=== PATIENT | male | born 1950 | race Caucasian/White ===

== ENCOUNTER → 2018-09-30 | Outpatient (CLI) | payer MEDICARE, OTHER ==
[2018-09-30 13:04] LABS: ALANINE AMINOTRANSFERASE 34 U/L (21-72); ALBUMIN 3.6 g/dL (3.5-5.0); ALKALINE PHOSPHATASE 68 U/L (38-126); ANION GAP 9 (5-19); ASPARTATE AMINO TRANSFERASE 32 U/L (17-59); BILIRUBIN,DIRECT 0.2 mg/dL (0.0-0.4); BILIRUBIN,TOTAL 0.3 mg/dL (0.2-1.3); BLOOD UREA NITROGEN 11 mg/dL (7-20); CALCIUM 9.1 mg/dL (8.4-10.2); CARBON DIOXIDE 29 mmol/L (22-30); CHLORIDE 97 mmol/L (98-107); CREATINE KINASE 376 U/L (55-170); GLUCOSE 117 mg/dL (75-110); POTASSIUM 5.3 mmol/L (3.6-5.0); SODIUM 135.1 mmol/L (137-145); TOTAL PROTEIN 6.1 g/dL (6.3-8.2)
[2018-09-30 13:17] LABS: FREE T3 4.22 pg/mL (2.77-5.27); FREE T4 (FREE THYROXINE) 1.47 ng/dL (0.78-2.19)
[2018-09-30 13:30] LABS: THYROID STIMULATING HORMONE 1.12 uIU/mL (0.47-4.68)
== END ==
LOC: OD 11:19
PROVIDERS: ATTEND Radiology Radiation Oncology
DX: C61 Malignant neoplasm of prostate (principal); R53.83 Other fatigue; R25.2 Cramp and spasm
CPT/HCPCS: 36415; 80053; 82550; 83036; 83735; 84439; 84443; 84481

== ENCOUNTER 2018-11-07 11:45 | Observation (INO) | payer MEDICARE, OTHER ==
[2018-11-07 12:08] LABS: ABSOLUTE LYMPHOCYTES (AUTO) 0.9 10^3/uL (0.5-4.7); ABSOLUTE MONOCYTES (AUTO) 0.3 10^3/uL (0.1-1.4); ABSOLUTE NEUT (AUTO) 2.1 10^3/uL (1.7-8.2); BASOPHILS % (AUTO) 0.3 % (0-2); EOSINOPHILS % (AUTO) 1.4 % (0-6); HEMATOCRIT 35.5 % (37.9-51.0); HEMOGLOBIN 12.7 g/dL (13.5-17.0); LYMPHOCYTES % (AUTO) 27.2 % (13-45); MEAN CORPUSCULAR HGB CONC 35.8 g/dL (32.0-36.0); MEAN CORPUSCULAR VOLUME 101 fl (80-97); MONOCYTES % (AUTO) 9.5 % (3-13); PLATELET COUNT 173 10^3/uL (150-450); RED BLOOD COUNT 3.53 10^6/uL (4.35-5.55); RED CELL DISTRIBUTION WIDTH 14.3 % (11.5-14.0); SEGMENTED NEUTROPHILS % (AUTO) 61.6 % (42-78); TOTAL CELLS COUNTED % (AUTO) 100 %; WHITE BLOOD COUNT 3.5 10^3/uL (4.0-10.5)
[2018-11-07 12:29] LABS: ALANINE AMINOTRANSFERASE 26 U/L (21-72); ALKALINE PHOSPHATASE 55 U/L (38-126); ANION GAP 8 (5-19); ASPARTATE AMINO TRANSFERASE 26 U/L (17-59); BILIRUBIN,DIRECT 0.2 mg/dL (0.0-0.4); BILIRUBIN,TOTAL 0.3 mg/dL (0.2-1.3); BLOOD UREA NITROGEN 12 mg/dL (7-20); CALCIUM 9.8 mg/dL (8.4-10.2); CARBON DIOXIDE 29 mmol/L (22-30); CHLORIDE 100 mmol/L (98-107); CREATINE KINASE 136 U/L (55-170); GLUCOSE 171 mg/dL (75-110); POTASSIUM 4.3 mmol/L (3.6-5.0); SODIUM 137.1 mmol/L (137-145); TOTAL PROTEIN 6.7 g/dL (6.3-8.2)
[2018-11-07 12:41] LABS: CREATINE KINASE MB 2.97 ng/mL (<4.55)
[2018-11-07 12:44] LABS: TROPONIN I < 0.012 ng/mL
--- NOTE | 2018-11-07 12:52 | EKG REPORT ---
SEVERITY:- BORDERLINE ECG - SINUS RHYTHM BORDERLINE T WAVE ABNORMALITIES : Confirmed by: Aleks Zavaleta MD 07-Nov-2018 12:52:03
[2018-11-07 14:43] LABS: AMORPHOUS SEDIMENT,URINE TRACE /HPF; APPEARANCE,URINE CLOUDY; BILIRUBIN,URINE NEGATIVE (NEGATIVE); COLOR,URINE YELLOW; GLUCOSE, URINE NEGATIVE (NEGATIVE); KETONES,URINE NEGATIVE (NEGATIVE); LEUKOCYTE ESTERASE,URINE NEGATIVE (NEGATIVE); NITRITE,URINE NEGATIVE (NEGATIVE); PROTEIN,URINE NEGATIVE (NEGATIVE); URINE SPECIFIC GRAVITY 1.013; UROBILINOGEN,URINE NEGATIVE mg/dL (<2.0)
--- NOTE | 2018-11-07 14:43 | ER Document Report ---
ED General - General Chief Complaint: Near Syncope Stated Complaint: SYNCOPE Time Seen by Provider: 11/07/18 13:09 Primary Care Provider: AZ HENDERSON JR, MD [Primary Care Provider] - Follow up as needed Notes: 68-year-old male with COPD and prostate cancer actively being treated with radiation presents to the emergency department for syncopal episode 2 times today. Patient states that he start started getting dizzy and it got acutely worse and started losing strength and he along to the bathroom where he sat on the toilet and then decided to have a bowel movement. He had a bowel movement and then passed out. His found him on the ground after he called her telling her what happened. Patient states he was initially short of breath as he was weak. He denies any chest pain or current shortness of breath. Complains of weakness. Denies any nausea vomiting or diarrhea, denies any back pain or joint pain. No other complaints. TRAVEL OUTSIDE OF THE [place] IN LAST 30 DAYS: No - Related Data Allergies/Adverse Reactions: alprazolam [From Xanax] Allergy (Verified 11/07/18 11:55) zolpidem tartrate [From Ambien] Allergy (Verified 11/07/18 11:55) Past Medical History - Social History Smoking Status: Current Every Day Smoker Frequency of alcohol use: None Drug Abuse: None Family History: CAD Patient has suicidal ideation: No Patient has homicidal ideation: No - Past Medical History Cardiac Medical History: Reports: Hx Hypercholesterolemia, Hx Hypertension - BORDERLINE, Hx Pulmonary Embolism Pulmonary Medical History: Reports: Hx Bronchitis, Hx COPD Neurological Medical History: Reports: Hx Seizures Endocrine Medical History: Reports: Hx Diabetes Mellitus Type 1, Hx Diabetes Mellitus Type 2 Renal/ Medical History: Denies: Hx Peritoneal Dialysis Past Surgical History: Reports: Hx Appendectomy, Hx Orthopedic Surgery - right leg - Immunizations Hx Diphtheria, Pertussis, Tetanus Vaccination: Yes Hx Pneumococcal Vaccination: 02/25/10 Review of Systems - Review of Systems Constitutional: See HPI EENT: No symptoms reported Cardiovascular: See HPI Respiratory: See HPI Gastrointestinal: See HPI Genitourinary: No symptoms reported Male Genitourinary: No symptoms reported Musculoskeletal: No symptoms reported Skin: No symptoms reported Hematologic/Lymphatic: No symptoms reported Neurological/Psychological: See HPI Physical Exam - Vital signs Vitals: Resp Pulse Ox 11 L 100 11/07/18 11:56 11/07/18 11:56 - Notes Notes: PHYSICAL EXAMINATION: Reviewed vital signs and charting by RN GENERAL: Alert, interacts well. No acute distress. Appears pekid HEAD: Normocephalic, atraumatic. EYES: Pupils equal and round. Extraocular movements intact. ENT: Oral mucosa moist, tongue midline. NECK: Full range of motion. Trachea midline. LUNGS: Clear to auscultation bilaterally, no wheezes, rales, or rhonchi. No respiratory distress. HEART: Regular rate and rhythm. No murmur ABDOMEN: soft, non-tender. No distention. Bowel sounds present EXTREMITIES: Moves all 4 extremities spontaneously. No edema, No cyanosis. NEURO: A &O X 3, normal speech, normal gailt, PERRL, EOMI, SILT, follows commands in all 4 extremities, no gross abnormalities of cranial nerves, no focal neuro deficits, reports analysis manager strength 5/5 bilateral, 5/5 strength in both proximal and distal upper and lower extremities PSYCH: Normal affect, normal mood. SKIN: Warm, dry, pallor. No rashes or lesions noted. Course - Re-evaluation Re-evalutation: 11/07/18 14:45 Overall peaked appearing he is a patient of Dr. Walter at [facility]. I cannot exclude a PE with his initial lab work all being within normal limits and Wells score for PE is 4.5. CTA ordered 11/07/18 15:46 11/07/18 16:08 Orthostatics were negative upon arrival to the ER. I talked to Dr. Turner, hospitalist who accepted the patient for full admission to the [facility]. - Vital Signs Vital signs: Temp Pulse Resp BP Pulse Ox 97.6 F 66 13 129/67 H 99 11/07/18 13:00 11/07/18 12:11 11/07/18 15:00 11/07/18 14:01 11/07/18 15:00 - Laboratory Result Diagrams: 11/07/18 11:50 11/07/18 11:50 Laboratory results interpreted by me: 11/07/18 11/07/18 11:50 11:50 WBC 3.5 L RBC 3.53 L Hgb 12.7 L Hct 35.5 L MCV 101 H MCH 36.0 H RDW 14.3 H Glucose 171 H Discharge - Discharge Clinical Impression: Syncope Qualifiers: Syncope type: unspecified Qualified Code(s): R55 - Syncope and collapse Condition: Stable Disposition: ADMITTED INPATIENT Admitting Provider: Johnny (Hospitalist) Unit Admitted: IMCU Referrals: AZ HENDERSON JR, MD [Primary Care Provider] - Follow up as needed
[2018-11-07] MEDS ORDERED: IPRATROPIUM/ALBUTEROL 0.5-2.5 MG/3 ML AMPUL NEB PRN (16:46)
[2018-11-07] MEDS ORDERED: ONDANSETRON HCL INJ/PF 4 MG/2 ML SDV IV PRN (16:46)
[2018-11-07] MEDS ORDERED: PROMETHAZINE HCL INJ 25 MG/1 ML VIAL IV PRN (16:46)
[2018-11-07] MEDS ORDERED: ACETAMINOPHEN 325 MG TABLET PO PRN (16:46)
--- NOTE | 2018-11-07 17:22 | PDOC H&P ---
History of Present Illness Admission Date/PCP: 11/07/18 16:13 AZ HENDERSON JR, MD History of Present Illness: SANJAY TRUJILLO is a 68 year old male past medical history of prostate CA curr ently on XRT cycle 37, history of PE followed by DVT (on Coumadin transitioned to Xarelto respectively), hypertension, diabetes, history of skin cancer, presenting to ED after an episode of syncope. Patient is stating today at 11 AM he was walking to the restroom, felt lightheaded, mild shortness of breath, started losing his strength, he sat on tje toilet, and passed out. Was found on the floor by the who is at the bedside and states that he did not sustain any trauma due to syncope, did not witness any convulsions, and was not postictal. Patient denies any prior history of syncope, any CAD, arrhythmia. He has been keeping himself well-hydrated and denies any nausea, vomiting, diarrhea or any external fluid losses. In ED orthostasis was negative, HBG 12.7, CBC within normal limits, troponins less than 0.012, CK 136, UA negative. CTA and CT head pending at the time of admission. He denies any fever, shortness of breath, chest pain, palpitation, nausea, vomiting, diarrhea, constipation, sick contacts, recent travel, recent immobilization, recent hospitalization, recent long travel. Note: Patient medication needs to be reconciled however the initial list which was reconsult by pharmacy appeared to be incorrect as per patient. At the time of dictation metric is pending. Past Medical History Cardiac Medical History: Reports: Hyperlipidema, Hypertension - BORDERLINE, Pulmonary Embolism Pulmonary Medical History: Reports: Bronchitis, Chronic Obstructive Pulmonary Disease (COPD) Neurological Medical History: Reports: Seizures Endocrine Medical History: Reports: Diabetes Mellitus Type 1, Diabetes Mellitus Type 2 Past Surgical History Past Surgical History: Reports: Appendectomy, Orthopedic Surgery - right leg Social History Smoking Status: Current Every Day Smoker Family History Family History: CAD Parental Family History Reviewed: Yes Children Family History Reviewed: Yes Sibling(s) Family History Reviewed.: Yes Medication/Allergy Allergies/Adverse Reactions: alprazolam [From Xanax] Allergy (Verified 11/07/18 11:55) zolpidem tartrate [From Ambien] Allergy (Verified 11/07/18 11:55) Review of Systems Review of Systems: as hpi Physical Exam Vital Signs: Temp Pulse Resp BP Pulse Ox 97.6 F 66 12 119/63 100 11/07/18 13:00 11/07/18 12:11 11/07/18 17:01 11/07/18 17:01 11/07/18 17:01 Intake & Output 11/06/18 11/07/18 11/08/18 06:59 06:59 06:59 Output Total 300 Balance -300 Weight 83.915 kg General appearance: PRESENT: no acute distress, well-developed, well-nourished Head exam: PRESENT: atraumatic, normocephalic Eye exam: PRESENT: conjunctiva pink, EOMI, PERRLA. ABSENT: scleral icterus Ear exam: PRESENT: normal external ear exam Mouth exam: PRESENT: moist, tongue midline Neck exam: ABSENT: carotid bruit, JVD, lymphadenopathy, thyromegaly Respiratory exam: PRESENT: clear to auscultation pamela. ABSENT: rales, rhonchi, wheezes Cardiovascular exam: PRESENT: RRR. ABSENT: diastolic murmur, rubs, systolic murmur Pulses: PRESENT: normal dorsalis pedis pul Vascular exam: PRESENT: normal capillary refill GI/Abdominal exam: PRESENT: normal bowel sounds, soft. ABSENT: distended, guarding, mass, organolmegaly, rebound, tenderness Rectal exam: PRESENT: deferred Extremities exam: PRESENT: full ROM. ABSENT: calf tenderness, clubbing, pedal edema Neurological exam: PRESENT: alert, awake, oriented to person, oriented to place, oriented to time, oriented to situation, CN II-XII grossly intact. ABSENT: motor sensory deficit Psychiatric exam: PRESENT: appropriate affect, normal mood. ABSENT: homicidal ideation, suicidal ideation Skin exam: PRESENT: dry, intact, warm. ABSENT: cyanosis, rash Results Laboratory Results: 11/07/18 11:50 11/07/18 11:50 11/07/18 11/07/18 11/07/18 11:50 11:50 14:05 WBC 3.5 L RBC 3.53 L Hgb 12.7 L Hct 35.5 L MCV 101 H MCH 36.0 H MCHC 35.8 RDW 14.3 H Plt Count 173 Seg Neutrophils % 61.6 Lymphocytes % 27.2 Monocytes % 9.5 Eosinophils % 1.4 Basophils % 0.3 Absolute Neutrophils 2.1 Absolute Lymphocytes 0.9 Absolute Monocytes 0.3 Absolute Eosinophils 0.0 Absolute Basophils 0.0 Sodium 137.1 Potassium 4.3 Chloride 100 Carbon Dioxide 29 Anion Gap 8 BUN 12 Creatinine 0.89 Est GFR ( Amer) > 60 Est GFR (Non-Af Amer) > 60 Glucose 171 H Calcium 9.8 Total Bilirubin 0.3 AST 26 ALT 26 Alkaline Phosphatase 55 Total Protein 6.7 Albumin 4.0 Urine Color YELLOW Urine Appearance CLOUDY Urine pH 8.0 Ur Specific [place] 1.013 Urine Protein NEGATIVE Urine Glucose (UA) NEGATIVE Urine Ketones NEGATIVE Urine Blood NEGATIVE Urine Nitrite NEGATIVE Ur Leukocyte Esterase NEGATIVE Urine WBC (Auto) 2 Urine RBC (Auto) 3 11/07/18 11/07/18 11:50 11:50 Creatine Kinase 136 CK-MB (CK-2) 2.97 Troponin I < 0.012 Assessment and Plan - Diagnosis (1) Syncope Qualifiers: Syncope type: unspecified Qualified Code(s): R55 - Syncope and collapse Is this a current diagnosis for this admission?: Yes Plan: Admit to IMCU, telemetry, CT head, CTA chest, carotid Doppler. Start on fall, aspiration, seizure precautions. Aspirin, statins, optimize BP, monitor electrolytes and replace as needed. Follow-up CT head/CTA. (2) HTN (hypertension) Is this a current diagnosis for this admission?: No Plan: Normotensive. Orthostatics negative. Restart home meds adjust meds as needed. IV hydralazine as needed. Outpatient PCP follow-up. (3) Hx of prostatic malignancy Is this a current diagnosis for this admission?: No Plan: On XRT cycle 37/45. Has established care as outpatient. (4) Hx of deep venous thrombosis Is this a current diagnosis for this admission?: No Plan: History of DVT 2016. On Xarelto. Monitor for bleeding. Continue Xarelto. (5) Hx pulmonary embolism Is this a current diagnosis for this admission?: No Plan: History of PE in 2016. Initially was on Coumadin which was stopped. Patient developed a DVT 3 years ago. Currently on Xarelto. Continue current meds. (6) Hyperlipidemia Is this a current diagnosis for this admission?: No Plan: Start home meds. Diet and lifestyle modification. (7) Depression Is this a current diagnosis for this admission?: No Plan: Denies any suicidal or homicidal ideation. Restart home meds. (8) Hypothyroid Is this a current diagnosis for this admission?: No Plan: Restart home meds. Will obtain TSH. (9) Chronic obstructive lung disease Is this a current diagnosis for this admission?: No Plan: Currently not exacerbated. Restart home meds, PRN duo nebs, BiPAP, supplemental oxygen. (10) Diabetes mellitus Is this a current diagnosis for this admission?: No Plan: Diabetic diet, sliding scale insulin, long-acting insulin, pre-meal insulin. Hold oral anti-hypoglycemics. Adjust meds as needed. Restart home meds on discharge. Outpatient PCP follow-up.
[2018-11-07] MEDS ORDERED: DEXTROSE 40% GEL 15 GM TUBE PO PRN ×2 (17:23)
[2018-11-07] MEDS ORDERED: GLUCAGON,HUMAN RECOMB 1 MG INJ IM PRN (17:23)
[2018-11-07] MEDS ORDERED: DEXTROSE 50%-WATER 25 GM/50 ML DISP.SYRIN IV PRN ×2 (17:23)
[2018-11-07] MEDS ORDERED: HYDRALAZINE HCL INJ/PF 20 MG/1 ML SDV IV PRN (19:08)
--- NOTE | 2018-11-07 20:05 | RADIOLOGY REPORT (SQ) ---
CT HEAD WITHOUT IV CONTRAST HISTORY: Syncope. COMPARISON: None. TECHNIQUE: CT scan of the brain without IV contrast. This exam was performed according to our departmental dose-optimization program, which includes automated exposure control, adjustment of the mA and/or kV according to patient size and/or use of iterative reconstruction technique. FINDINGS: Diffuse involutional changes are present. There is prominence of the posterior fossa CSF space, which may represent either an arachnoid cyst or hernan cisterna magna. No evidence of acute infarction, intracranial hemorrhage, extra-axial fluid collection, or midline shift. No air-fluid levels are seen in the paranasal sinuses to suggest acute sinusitis. No depressed skull fracture. IMPRESSION: No acute intracranial findings.
--- NOTE | 2018-11-07 20:07 | RADIOLOGY REPORT (SQ) ---
CT CHEST ANGIOGRAPHY WITHOUT THEN WITH IV CONTRAST HISTORY: Shortness of breath. COMPARISON: None. TECHNIQUE: CT angiogram of the chest with IV contrast. 3-D MIP images were obtained in coronal and sagittal reconstructions. This exam was performed according to our departmental dose-optimization program, which includes automated exposure control, adjustment of the mA and/or kV according to patient size and/or use of iterative reconstruction technique. FINDINGS: No filling defects are identified in the pulmonary trunk, main left and right pulmonary arteries, or the segmental branches. The thoracic aorta is normal caliber without aneurysm or dissection. The thyroid gland is normal. No mediastinal or hilar adenopathy. The heart size is normal without pericardial effusion. The thoracic aorta is normal caliber. No consolidation, pleural effusion, or pneumothorax is identified. The visualized upper abdomen demonstrates no acute findings. No acute osseous findings are seen. IMPRESSION: No acute pulmonary embolism.
[2018-11-07] MEDS: ASPIRIN 81 MG TABLET, CHEWABLE PO SCH (20:19)
[2018-11-07] MEDS ORDERED: ATORVASTATIN CALCIUM 40 MG TABLET PO SCH (22:00)
[2018-11-07] MEDS ORDERED: RIVAROXABAN 10 MG TABLET PO SCH (22:00)
[2018-11-07] MEDS ORDERED: VANCOMYCIN HCL 1,500 MG in DEXTROSE 5%-WATER 250 ML IV SCH (22:00)
[2018-11-07] MEDS: INSULIN LISPRO 100 UNIT/ML 3 ML VIAL SUBCUT SCH (23:26)
[2018-11-07] MEDS: FAMOTIDINE 20 MG TABLET PO SCH (23:26)
[2018-11-07] MEDS: NORMAL SALINE 1000 ML 1,000 ML IV PRN (23:39)
[2018-11-08 06:21] LABS: ABSOLUTE LYMPHOCYTES (AUTO) 0.9 10^3/uL (0.5-4.7); ABSOLUTE MONOCYTES (AUTO) 0.5 10^3/uL (0.1-1.4); ABSOLUTE NEUT (AUTO) 1.8 10^3/uL (1.7-8.2); BASOPHILS % (AUTO) 0.2 % (0-2); EOSINOPHILS % (AUTO) 1.4 % (0-6); HEMATOCRIT 32.2 % (37.9-51.0); HEMOGLOBIN 11.5 g/dL (13.5-17.0); LYMPHOCYTES % (AUTO) 29.2 % (13-45); MEAN CORPUSCULAR HEMOGLOBIN 35.7 pg (27.0-33.4); MEAN CORPUSCULAR HGB CONC 35.8 g/dL (32.0-36.0); MEAN CORPUSCULAR VOLUME 100 fl (80-97); MONOCYTES % (AUTO) 14.3 % (3-13); PLATELET COUNT 145 10^3/uL (150-450); RED BLOOD COUNT 3.22 10^6/uL (4.35-5.55); RED CELL DISTRIBUTION WIDTH 14.2 % (11.5-14.0); SEGMENTED NEUTROPHILS % (AUTO) 54.9 % (42-78); TOTAL CELLS COUNTED % (AUTO) 100 %; WHITE BLOOD COUNT 3.3 10^3/uL (4.0-10.5)
[2018-11-08 06:52] LABS: ANION GAP 6 (5-19); BLOOD UREA NITROGEN 13 mg/dL (7-20); CALCIUM 9.2 mg/dL (8.4-10.2); CARBON DIOXIDE 29 mmol/L (22-30); CHLORIDE 103 mmol/L (98-107); GLUCOSE 106 mg/dL (75-110); POTASSIUM 4.8 mmol/L (3.6-5.0); SODIUM 137.8 mmol/L (137-145)
[2018-11-08] MEDS: INSULIN LISPRO 100 UNIT/ML 3 ML VIAL SUBCUT SCH ×3 (07:59→16:07)
--- NOTE | 2018-11-08 08:26 | RADIOLOGY REPORT (SQ) ---
EXAM DESCRIPTION: CAROTID DOPPLER COMPLETED DATE/TIME: 11/07/2018 8:18 pm REASON FOR STUDY: syncope COMPARISON: 03/07/2013 TECHNIQUE: Grayscale ultrasound, Doppler velocity and spectra, and color Doppler images acquired of the extra-cranial carotid and vertebral arteries. Images stored on PACS. LIMITATIONS: None. FINDINGS: RIGHT CAROTID CCA Velocities: Within normal limits. ICA Velocities Peak systolic 1.0 m/s. End diastolic 0.23 m/s. Proximal ICA/CCA peak systolic ratio 0.8. Mild soft plaque. LEFT CAROTID CCA Velocities: Within normal limits. ICA Velocities Peak systolic 0.96 m/s. End diastolic 0.16 m/s. Proximal ICA/CCA peak systolic ratio 1.2. Mild soft plaque is present. VERTEBRAL ARTERIES: Antegrade flow. Normal waveforms. SUBCLAVIAN ARTERIES: No finding. OTHER: No other significant finding. IMPRESSION: NO HEMODYNAMICALLY SIGNIFICANT STENOSIS. COMMENT: Quality ID #[id number]: Velocity criteria are extrapolated from the diameter data as defined by t he Society of Radiologists in Ultrasound Consensus Conference. Radiology 2003: 229; 340-346. TECHNICAL DOCUMENTATION: JOB ID: [id number] [employer]- All Rights Reserved Reading location - IP/workstation name: [email or web address]
[2018-11-08] MEDS: ASPIRIN 81 MG TABLET, CHEWABLE PO SCH (09:30)
[2018-11-08] MEDS: FAMOTIDINE 20 MG TABLET PO SCH (09:30)
[2018-11-08] MEDS ORDERED: RIVAROXABAN 15 MG TABLET PO SCH (10:00)
[2018-11-08] MEDS ORDERED: DOCUSATE SODIUM 100 MG CAPSULE PO SCH (10:00)
[2018-11-08] MEDS: NORMAL SALINE 1000 ML 1,000 ML IV PRN (11:44)
[2018-11-08 12:45] VITALS: BP 123/66
--- NOTE | 2018-11-08 19:33 | PDOC DISCHARGE SUMMARY ---
General - Admit/Disc Date/PCP Admission Date/Primary Care Provider: 11/07/18 16:13 AZ IRVIN JR, MD Discharge Date: 11/08/18 - Discharge Diagnosis (1) Syncope Is this a current diagnosis for this admission?: Yes Summary: We reviewed the episode from yesterday. The patient was very clear about the events. After auscultation and discussion a consideration would be cardiogenic. He does have borderline bradycardia without medication. He certainly could have experienced a heart block of some sort. His QT interval is normal as is his CO. He does have occasional ectopic beats. I suggested that he see his primary care physician and have an event recorder to try and catch an episode. He does report that he wore an event recorder in the past. He could not remember the reason why but I would imagine it was similar. He is on long-term anticoagulation and aspirin therapy so no other medication changes necessary. (2) Diabetes mellitus type 2 in nonobese Is this a current diagnosis for this admission?: Yes Summary: His diabetes is well controlled. He will return to his base medications. (3) Prostate cancer Is this a current diagnosis for this admission?: Yes Summary: The patient admits that with ongoing radiation therapy has been getting more and more fatigued. The episode could have been related to the cumulative effects of the therapy. He does have 9 more treatments to go. He does stay well-hydrated and should be able to complete the regimen. (4) Chronic anticoagulation Is this a current diagnosis for this admission?: Yes Summary: He is on this for history of thromboses. This makes thromboembolic event less likely. His carotid ultrasounds were negative. He also takes aspirin every day. He will continue on both of these post discharge. - Additional Information Resuscitation Status: Full Code Discharge Diet: Diabetic Discharge Activity: Activity As Tolerated, Balance Activity w/Rest Home Medications: Aspirin [Aspirin 81 mg Chewable Tablet] 81 mg PO DAILY tab.chew 11/08/18 Metformin HCl [Glucophage 500 mg Tablet] 500 mg PO DAILY 11/08/18 Rivaroxaban [Xarelto] 20 mg PO DAILY 11/08/18 History of Present Illness Patient complains of: Syncope History of Present Illness: SANJAY TRUJILLO is a 68 year old male currently being treated for prostate cancer with radiation therapy. He reports increasing fatigue that he believes is from therapy. He was feeling at his baseline when he began to walk to the bathroom. On the way he reports a wave of fatigue, some shortness of breath but no palpitations, chest pain or seizure-like activity. He did make it to sit on the toilet but in fact then passed out. His reported to him that he recovered and then quickly passed out again and then recovered and all of this was within seconds. EMS was called and he was transported to the hospital. Work-up including CT scan of the head was negative. Carotid artery studies were negative. The patient was referred to the hospital service for observation and monitoring. Hospital Course Hospital Course: The patient remained on the patient monitor through the night. No arrhythmias were noted. He does have occasional ectopic beats. He had no recurrent symptoms and no episodes of syncope. Carotid ultrasound was negative. CT scan of the head was negative. The patient was discharged home. Physical Exam Vital Signs: Temp Pulse Resp BP Pulse Ox 98.5 F 57 L 16 123/66 100 11/08/18 11:37 11/08/18 14:00 11/08/18 11:37 11/08/18 11:37 11/08/18 11:37 Intake & Output 11/07/18 11/08/18 11/09/18 06:59 06:59 06:59 Intake Total 1567 Output Total 750 400 Balance -750 1167 Weight 84.6 kg General appearance: PRESENT: no acute distress, cooperative, well-developed Head exam: PRESENT: atraumatic, normocephalic Ear exam: PRESENT: normal external ear exam Mouth exam: PRESENT: moist, neck supple, tongue midline Respiratory exam: PRESENT: clear to auscultation pamela, symmetrical, unlabored. ABSENT: rales, rhonchi, tachypnea, wheezes Cardiovascular exam: PRESENT: bradycardia, +S1, +S2, other - Occasional irregular beats GI/Abdominal exam: PRESENT: normal bowel sounds, soft. ABSENT: distended, tenderness Extremities exam: ABSENT: pedal edema Musculoskeletal exam: PRESENT: ambulatory Neurological exam: PRESENT: alert, awake, oriented to person, oriented to place, oriented to time, oriented to situation, CN II-XII grossly intact. ABSENT: motor sensory deficit Psychiatric exam: PRESENT: appropriate affect, normal mood. ABSENT: agitated, anxious Focused psych exam: ABSENT: delusional, restlessness Results Laboratory Results: 11/08/18 05:12 11/08/18 05:12 11/07/18 11/08/18 11/08/18 11:40 05:12 05:12 WBC 3.3 L RBC 3.22 L Hgb 11.5 L Hct 32.2 L MCV 100 H MCH 35.7 H MCHC 35.8 RDW 14.2 H Plt Count 145 L Seg Neutrophils % 54.9 Lymphocytes % 29.2 Monocytes % 14.3 H Eosinophils % 1.4 Basophils % 0.2 Absolute Neutrophils 1.8 Absolute Lymphocytes 0.9 Absolute Monocytes 0.5 Absolute Eosinophils 0.0 Absolute Basophils 0.0 Sodium 137.8 Potassium 4.8 Chloride 103 Carbon Dioxide 29 Anion Gap 6 BUN 13 Creatinine 0.77 Est GFR ( Amer) > 60 Est GFR (Non-Af Amer) > 60 Glucose 106 Calcium 9.2 Magnesium 1.8 TSH 3.15 11/07/18 11/07/18 11:50 11:50 Creatine Kinase 136 CK-MB (CK-2) 2.97 Troponin I < 0.012 Impressions: Chest/Abdomen CTA 11/07/18 15:41 IMPRESSION: No acute pulmonary embolism. Head CT 11/07/18 15:58 IMPRESSION: No acute intracranial findings. Carotid Doppler Study 11/07/18 17:22 IMPRESSION: NO HEMODYNAMICALLY SIGNIFICANT STENOSIS. Qualifiers - * PATIENT BEING DISCHARGED WITH ANY OF THE FOLLOWING DIAGNOSIS: No Acute Heart Failure - Is this a Heart Failure Patient?: No Plan Discharge Plan: Discharge to home with follow-up with Dr. Irvin his primary care provider. I have suggested a cardiac event recorder. He will continue his anticoagulation and aspirin therapy. Time Spent: Greater than 30 Minutes
== END 2018-11-08 17:00 | disposition home or self-care (01) ==
LOC: ER 11:45 → INTOOBSV 16:13 → EH 16:13 → 3W 18:50
PROVIDERS: ADMIT Internal Medicine; ATTEND Internal Medicine
DX: R55 Syncope and collapse (principal); C61 Malignant neoplasm of prostate; I10 Essential (primary) hypertension; E11.9 Type 2 diabetes mellitus without complications; E78.5 Hyperlipidemia, unspecified; J44.9 Chronic obstructive pulmonary disease, unspecified; F17.200 Nicotine dependence, unspecified, uncomplicated; E03.9 Hypothyroidism, unspecified; R53.1 Weakness; Z86.711 Personal history of pulmonary embolism; Z79.01 Long term (current) use of anticoagulants; Z85.828 Personal history of other malignant neoplasm of skin; Z82.49 Family history of ischemic heart disease and other diseases of the circulatory system; Z88.8 Allergy status to other drugs, medicaments and biological substances; Z86.718 Personal history of other venous thrombosis and embolism; F32.9 Major depressive disorder, single episode, unspecified; Z79.82 Long term (current) use of aspirin
CPT/HCPCS: 93005; 99285; 36415 ×2; 82553; 82962 ×2; 82550; 83735; 84443; 85025 ×2; 80048; 80053; 81001; 84484; 93880; 70450; 71275; 93010; G0378 ×3; A9270 ×3; J7030 ×2